=== PATIENT | male | born 1950 | race African-American/Black ===

== ENCOUNTER 2023-09-09 17:32 | Emergency (ER) | payer MEDICARE, MEDICAID ==
[~2023-09-09] VITALS: Ht 182.9 cm; Wt 77.2 kg
[2023-09-09 17:54] VITALS: BP 140/64; PULSE 72; RESP 16; TEMP 98.6; O2SAT 100
[2023-09-09 18:03] LABS: BASOPHILS % 0.5 % (0.0-2.0); HEMATOCRIT. 38.1 % (42.0-52.0); HEMOGLOBIN. 12.3 g/dL (14.0-18.0); LYMPHOCYTES % 26.3 % (20.0-50.0); MEAN CORPUSCULAR HEMOGLOBIN 30.1 pg (28.0-32.0); MEAN CORPUSCULAR HGB CONC 32.3 g/dL (31.0-37.0); MEAN CORPUSCULAR VOLUME 93.2 fL (80.0-94.0); MEAN PLATELET VOLUME 9.7 fl (7.4-10.4); MONOCYTES % 9.1 % (2.0-8.0); NEUTROPHILS % 63.1 % (40.0-76.0); PLATELET 230 x1000/uL (130-400); RED BLOOD CELL COUNT 4.09 mill/uL (4.7-6.1); RED CELL DISTRIBUTION WIDTH 14.1 % (11.6-14.6); WHITE BLOOD COUNT 9.2 x1000/uL (4.5-11.0)
[2023-09-09 18:12] LABS: PROTHROMBIN TIME 10.9 sec (9.6-11.0)
[2023-09-09 18:18] LABS: ALANINE AMINOTRANSFERASE 15 IU/L (10-49); ALBUMIN 3.8 g/dL (3.2-4.8); ASPARTATE AMINOTRANSFERASE 17 IU/L (<34); BILIRUBIN TOTAL 0.4 mg/dL (0.1-1.0); CALCIUM 8.9 mg/dL (8.7-10.4); CARBON DIOXIDE 34 mEq/L (21-32); CHLORIDE 107 mEq/L (98-107); CREATININE 1.1 mg/dL (0.6-1.3); GLUCOSE 103 mg/dL (70-105); POTASSIUM 3.6 mEq/L (3.5-5.1); PROTEIN TOTAL 6.6 g/dL (6.0-8.3); SODIUM 143 mEq/L (136-145); TROPONIN I HIGH SENSITIVITY 6 ng/L (3.0-53); UREA NITROGEN BLOOD 16 mg/dL (9-23)
[2023-09-09] MEDS ORDERED: MAGNESIUM/ALUMINUM HYDROXIDE/SIMETHICONE 30ML UDC PO STA (19:06)
[2023-09-09] MEDS ORDERED: ONDANSETRON 4MG ODT PO STA (19:06)
[2023-09-09 19:55] LABS: TROPONIN I HIGH SENSITIVITY 5 ng/L (3.0-53)
[2023-09-09] MEDS ORDERED: FAMO-135 MT (20:44)
[2023-09-09] MEDS ORDERED: ONDANSETRON 4MG ODT PO NR (22:00)
[2023-09-09] MEDS ORDERED: MAGNESIUM/ALUMINUM HYDROXIDE/SIMETHICONE 30ML UDC PO NR (22:00)
== END 2023-09-09 22:04 | disposition home or self-care (01) ==
LOC: ER 17:32
DX: K29.70 Gastritis, unspecified, without bleeding (principal); R07.89 Other chest pain
CPT/HCPCS: 36415; 71045; 80053; 84484; 85025; 93005; 99285